=== PATIENT | female | born 1990 | race American Indian/Alaskan Native ===

== ENCOUNTER 2018-08-16 01:08 | Emergency (ER) | payer OTHER ==
[2018-08-16 01:25] VITALS: O2SAT 100
[2018-08-16] MEDS ORDERED: Hydrocodone/Acetaminophen 5 mg /300 mg Tab PO STA (02:09)
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
[2018-08-16 04:05] VITALS: BP 90/55; PULSE 67; RESP 22; TEMP 98.4
--- NOTE | 2018-08-16 09:39 | RAD ---
Date of service: 08/16/2018 HISTORY: injury COMPARISON: None available. TECHNIQUE: 2 views obtained. FINDINGS: BONES: Alignment maintained. No acute displaced fracture identified. DISC SPACES: Unremarkable. SOFT TISSUES: Unremarkable. OTHER FINDINGS: None. IMPRESSION: No acute findings identified.
--- NOTE | 2018-08-16 09:40 | RAD ---
Date of service: 08/16/2018 Indication: injury Two views, left femur radiographs Comparison: None available Findings: Soft tissues appear unremarkable. No evidence of radiopaque foreign body. No acute displaced fracture identified. No evidence of dislocation. Impression: No acute findings.
--- NOTE | 2018-08-16 09:42 | RAD ---
PROCEDURE: Radiographs of the right elbow. Three views. HISTORY: injury COMPARISON: None available. FINDINGS: BONES: No acute displaced fracture. JOINTS: No dislocation. SOFT TISSUES: Unremarkable. No evidence of radiopaque foreign body. JOINT EFFUSION: No significant joint effusion. OTHER FINDINGS: None IMPRESSION: No acute displaced fracture, dislocation, or significant joint effusion identified. If high clinical index of suspicion for acute fracture persists, recommend further evaluation with cross-sectional imaging.
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
== END 2018-08-16 04:04 | disposition home or self-care (01) ==
LOC: C.ER 01:08
DX: S70.12XA Contusion of left thigh, initial encounter (principal); V03.00XA Pedestrian on foot injured in collision with car, pick-up truck or van in nontraffic accident, initial encounter; Y92.410 Unspecified street and highway as the place of occurrence of the external cause; M79.18 Myalgia, other site